=== PATIENT | male | born 1995 | race Two or more races ===

== ENCOUNTER → 2020-06-14 | Emergency (ER) | payer SELFPAY ==
[~2020-06-14] VITALS: Ht 185.4 cm; Wt 86.4 kg
[2020-06-14 05:25] VITALS: BP 134/94
== END ==
LOC: ER 05:24
DX: Z04.1 Encounter for examination and observation following transport accident (principal); V49.3XXA Car occupant (driver) (passenger) injured in unspecified nontraffic accident, initial encounter; Y93.89 Activity, other specified; Y92.481 Parking lot as the place of occurrence of the external cause; Y99.8 Other external cause status
CPT/HCPCS: 99283

== ENCOUNTER 2023-11-27 11:29 | Emergency (ER) | payer MEDICAID ==
[~2023-11-27] VITALS: Ht 189.2 cm; Wt 72.8 kg
[2023-11-27] MEDS ORDERED: BUPR8TAB4 SL (15:03)
[2023-11-27 15:31] VITALS: BP 134/68; PULSE 70; RESP 14; TEMP 98.8; O2SAT 99
[2023-11-27] MEDS ORDERED: BUPR1FIL3 SL (15:34)
== END 2023-11-27 15:39 | disposition home or self-care (01) ==
LOC: ER 11:30
DX: S02.2XXA Fracture of nasal bones, initial encounter for closed fracture (principal); S00.12XA Contusion of left eyelid and periocular area, initial encounter; S00.11XA Contusion of right eyelid and periocular area, initial encounter; F11.90 Opioid use, unspecified, uncomplicated; R51.9 Headache, unspecified; Z79.899 Other long term (current) drug therapy; X83.8XXA Intentional self-harm by other specified means, initial encounter; Y93.89 Activity, other specified; Y92.89 Other specified places as the place of occurrence of the external cause; Y99.8 Other external cause status
CPT/HCPCS: 70450; 70486; 71046; 99284